=== PATIENT | male | born 1985 | race Two or more races ===

== ENCOUNTER 2024-02-05 08:32 | Emergency (ER) | payer MEDICAID, OTHER ==
[~2024-02-05] VITALS: Ht 172.7 cm; Wt 75.1 kg
[2024-02-05] MEDS ORDERED: NAPR-746 PO (10:57)
[2024-02-05] MEDS ORDERED: METH4PAK PO (10:57)
[2024-02-05 11:02] VITALS: BP 164/92; PULSE 76; RESP 18; TEMP 98; O2SAT 98
[2024-02-05] MEDS: HYDROcodone-ACET 5/325MG TAB PO ONE (11:08)
== END 2024-02-05 11:19 | disposition home or self-care (01) ==
LOC: ER 08:42
DX: S00.83XA Contusion of other part of head, initial encounter (principal); Y04.8XXA Assault by other bodily force, initial encounter; Y93.89 Activity, other specified; Y92.89 Other specified places as the place of occurrence of the external cause; Y99.8 Other external cause status
CPT/HCPCS: 70450; 70486